=== PATIENT | female | born 1985 | race Caucasian/White ===

== ENCOUNTER 2017-01-21 15:27 | Inpatient (IN) | payer OTHER ==
[~2017-01-21] VITALS: Ht 167.6 cm; Wt 88.0 kg
[~2017-01-21 15:27] MED LIST: Bupivacaine-MPF 0.25% 30 mL Inj ONE; Ibuprofen PO; NOMED
[2017-01-21] MEDS ORDERED: fentaNYL-PF 50 mCg/mL 2 mL Inj IVPUSH PRN (16:25)
[2017-01-21] MEDS ORDERED: Hemorrhage Kit, Post Partum XX ONE (16:25)
[2017-01-21] MEDS ORDERED: diphenhydrAMINE 50 mg Capsule PO PRN (16:25)
[2017-01-21] MEDS ORDERED: Methylergonovine 0.2 mg/mL Inj IM PRN (16:25)
[2017-01-21] MEDS ORDERED: Carboprost 250 mCg/mL Inj IM PRN (16:25)
[2017-01-21] MEDS ORDERED: Sodium Chloride LOK Flush 10 mL Syringe IVFLUSH PRN ×2 (16:25)
[2017-01-21] MEDS ORDERED: Ondansetron 2 mg/mL 2 mL Inj IVPUSH PRN ×2 (16:25→23:10)
[2017-01-21] MEDS ORDERED: Oxytocin 10 Unit/mL Inj IM PRN (16:25)
[2017-01-21] MEDS ORDERED: Oxytocin 30 Units/500 mL LR 30 UNITS in IV Premix 1 EACH IV PRN (16:25)
[2017-01-21] MEDS ORDERED: PNV1TABL81 PO (17:10)
--- NOTE | 2017-01-21 17:11 | HP ---
[address] [address] HISTORY AND PHYSICAL PATIENT: JOCELYN REYES : 1985 MR#: [id number] ADMIT: 01/21/2017 JOB ID: [id number] CHIEF COMPLAINT: Rupture of membranes at term. HISTORY OF PRESENT ILLNESS: A 31-year-old, 3, para 2 with an EDC of February 03, 2017 presents at 38-1/7 weeks gestation with spontaneous rupture of membranes sometime in the late morning today. She has noticed increased fluid as she has moved around through the late morning and early afternoon. The fluid has been clear. Per nursing an AmniSure test was positive in the Center. She was found to be 2 cm, 70% effaced, not lynne very regularly. She has a history of requiring inductions and a history of rxoes-kol-eawoxzjioqq-age infants. ISSUES: 1. History of LGA infant. 2. History of issues with her 1st son. 3. History of fast labors, once she receives an epidural. ALLERGIES: None known. CURRENT MEDICATIONS: vitamin 1 tablet daily. SOCIAL HISTORY: She is , mother of two. Nonsmoker. Has previously denied recreational drug use. PAST SURGICAL HISTORY: Laparoscopic cholecystectomy in 2011. PAST MEDICAL HISTORY: Varicella as a child. History of panic attacks, improved. PAST GYNECOLOGIC HISTORY: 3, para 2. In 2011 she was induced for post-term at 42 weeks, delivered a 10 pound 4 ounce male, sustained a third-degree laceration. In 2013 she delivered at 39-4/7 weeks, was induced because of her prior large , had an uncomplicated delivery of a 9 pound 9 ounce viable male. The third is her current. LABORATORY: Blood type O positive. Rubella immune. Serology nonreactive. Hepatitis B surface antigen and HIV test negative. Urine culture was negative at the onset of . She is antibody screen negative. Hematocrit at 28 weeks was 37.2. Her glucose tolerance test at that time showed a fasting of 79, a 1 hour of 109, a 2 hour of 110. An A1c at the onset of was 5.5 and a free T4 was 1.35. Her Pap was normal in July 2016 as were gonorrhea and chlamydial cultures, both negative. She declined risk screening. She is GBS negative screened January 02, 2017. HEALTHCARE MAINTENANCE: The patient had a Tdap and flu vaccine during this . REVIEW OF SYSTEMS: She feels movement. She has had occasional contractions. PHYSICAL EXAMINATION: Temperature 36.8 Celsius, weight 194 pounds. She is an alert, laughing, gravid woman with occasional contractions, not in significant distress. Initial blood pressure 146/79, pulse 97, respirations 16. Vaginal exam is not repeated as it was just performed by the triage nurse finding her at -3 station, 70% effaced, 2 cm dilated. heart tracing shows a category 1/reactive tracing with numerous accelerations and a baseline in the 130s to 140s. Tocometer does not flower buncher or picker any particularly regular contraction pattern. ASSESSMENT: 1. Rupture of membranes at 38-1/7 weeks gestation. 2. GBS negative. 3. History of LGA , delivered successfully. PLAN: Reviewed options. Discussed literature and general medical recommendations towards progressing towards delivery once she is ruptured. Discussed oxytocin augmentation given that she has already ruptured. She is quite amenable to this. She does want an epidural. I have a call out to Dr. Bauman, production consultant for [employer] for backup. Otherwise anticipate routine care.
[2017-01-21 17:37] LABS: Mean Corpuscular Hemoglobin 27.7 pg (27.0-35.0); Mean Corpuscular Volume 87.4 fL (81-100)
[2017-01-21] MEDS: Lactated Ringer's 1,000 ML IV PRN ×2 (18:01→23:08)
[2017-01-21] MEDS ORDERED: fentaNYL 2 mCg/mL-Bupivicaine 0.125% 100 mL Premix EPIDURAL ONE (23:02)
[2017-01-21] MEDS ORDERED: Lactated Ringer's 1,000 ML IV SCH (23:09)
[2017-01-21] MEDS ORDERED: Lactated Ringer's 500 ML IV ONE (23:09)
--- NOTE | 2017-01-21 23:09 | PCM.HPANE ---
Patient Data Surgeon Admitting Provider:Ramón Little MD Attending Provider:Ramón Little MD Primary Care Physician:Ramón Little MD Other Provider: Reason for Visit Active Labor ACTIVE LABOR Ht/WT & BMI Body Mass Index Allergies Coded Allergies: No Known Allergies (Unverified Allergy, Unknown, 01/21/17) Past Anesthesia History Anesthesia History: Denies:: Abnormal Airway, Anesthesia Reactions, Difficult Intubation, Fam Anesthesia Reaction, Fam Malignant Hypertherm, Malignant Hyperthermia Diabetes History Hx Diabetes?: No MRSA MRSA: No Medications Reported Medications Pnv No.122/Iron/Folic Acid ( Multi Tablet)27 Mg Iron-800 Mcg Tablet1 Each PO DAILY 01/21/17 No Historical Medication Ea 10/30/12 Discontinued Scripts [Ibuprofen] (Motrin)800 MG TABLET No Conflict [id number] Mg PO Q6 PRN For Pain # 14 TABLET Prov:Linda Meyers MD 04/13/14 History History of ENT Problems?: No HEENT History: Denies:: Abnormal Airway Difficult Intubation Dysphagia Hearing Problem Hx of Heart Problems?: No Cardiovascular History: Denies:: Atrial Fibrillation Chest Pain Congestive Heart Failure Hypertension Pacemaker Valvular Heart Disease Hx of Respiratory Problem?: No Respiratory History: Denies:: Asthma COPD Cough Hemoptysis Pneumonia Tuberculosis Hx Neurologic Problems?: No Neurological History: Denies:: CVA Hx of GI Problems?: No Gastrointestinal History: Denies:: Cirrhosis Diverticulitis Gastroesphageal Reflux Hiatal Hernia Rectal Bleeding Hx of Problems?: No Female Hx: Positive for:: Currently Denies:: Endometriosis Pelvic Inflammatory Problems with Breasts? Hx Musculoskeletal Problems?: No Musculoskeletal History: Denies:: Joint Replacement Hx of Psycho/Social Problems?: Yes Psycho Social History: Positive for:: Anxiety (hx of panic attacks) Denies:: Hx Depression Hx Surgeries?: Yes (lap sanjay) Hx Any Other Health Problems?: No Other History: Positive for:: Cancer Denies:: Endocrine Disease Thyroid Disease History Blood Transfusions: Denies:: Blood Transfusions Hx Diabetes: No Hx Alcohol Use: Yes (SOCIAL)Hx Substance Use: No Smoking Status: Never Smoker Stop/Bang Risk Assessment Category Category 1A: Patient has history of documented sleep apnea, and HAS NOT received any narcotic, sedative or anesthesia administration during this stay. Category 1B: Patient has history of documented sleep apnea, and HAS received any narcotic , sedative or anesthesia administration during this stay Category 2: Patient has SUSPECTED Obstructive Sleep Apnea, and HAS received any narcotic , sedative or anesthesia administration during this stay. Category 3: Patient has SUSPECTED Obstructive Sleep Apnea and HAS NOT received narcotic, sedative or anesthesia administration during this stay. Category 4: Outpatient in Procedural Areas with known sleep apnea or who screen positive for High Risk via the STOP/BANG questionnaire. Exam Exam General Appearance: Alert, Oriented X3, Cooperative, No Acute Distress HEENT/AIRWAY: MP 2 Lungs: Clear to Auscultation, Normal Air Movement Heart: Exam Unremarkable, Regular Rate/Rhythm, No Murmurs/Rubs/Gallops Meds/Labs/Diagnostics Labs Test 01/21/17 17:15 White Blood Count 7.7th/mm3 (3.8-10.1) Red Blood Count 4.05mil/mm3 (3.90-5.20) Hemoglobin 11.2g/dL (12.0-15.6) Hematocrit 35.4% (35.0-46.0) Mean Corpuscular Volume 87.4fL (81-100) Mean Corpuscular Hemoglobin 27.7pg (27.0-35.0) Mean Corpuscular Hemoglobin Concent 31.6% (32.0-37.0) Red Cell Distribution Width 14.0% (12.3-15.4) Platelet Count 190bil/L (150-400) Plan Impression Patient chart reviewed, patient interviewed and anesthestic plan with risks, benefits, and alternatives discussed, and informed consent obtained. Anesthetic Plan: Epidural Bene/Risks/Altern/Consents: Yes HP Complete Prior to Induction: Yes Trinidad Tobar MD Jan 21, 2017 23:09
[2017-01-21] MEDS ORDERED: fentaNYL 2 mCg/mL-Bupiv 0.125% 100 ML EPIDURAL SCH (23:10)
[2017-01-21] MEDS ORDERED: EPHEDrine Sulfate 50 mg/mL Inj IVPUSH PRN (23:10)
[2017-01-21] MEDS ORDERED: Atropine 1 mg/10 mL (Code) Syringe IVPUSH PRN (23:10)
[2017-01-22] MEDS ORDERED: Lactated Ringer's 1,000 ML IV SCH (01:22)
--- NOTE | 2017-01-22 01:23 | PCM.ANEP1 ---
Post Anesthesia Phase 1 PACU Phase 1 Assessment Anesthetic Administered: Epidural Level of Alertness: Awake, talking Pain: No Pain Scale Score: 8 Nausea or Vomiting: No Lungs: Clear to Auscultation, Normal Air Movement Trinidad Tobar MD Jan 22, 2017 01:23
--- NOTE | 2017-01-22 01:24 | PCM.ANEP2 ---
Post Anesthesia Evaluation ASA/CMS Post Anesthesia VS in Patient's Normal Range?: Yes Resp Stable; Airway Patent?: Yes CV Function & Hydration Stable: Yes Mental Status Recovered?: Yes Pain control Satisfactory?: Yes N/V Control Satisfactory?: Yes Trinidad Tobar MD Jan 22, 2017 01:24
[2017-01-22] MEDS ORDERED: LANOlin HPA 7 Gm Ointment TOPICAL PRN (01:25)
[2017-01-22] MEDS ORDERED: Benzocaine (Dermoplast) 20% 60 Gm Spray TOPICAL PRN (01:25)
[2017-01-22] MEDS ORDERED: Carboprost 250 mCg/mL Inj IM PRN (01:25)
[2017-01-22] MEDS ORDERED: Oxytocin 10 Unit/mL Inj IM PRN (01:25)
[2017-01-22] MEDS ORDERED: Methylergonovine 0.2 mg/mL Inj IM PRN (01:25)
[2017-01-22] MEDS ORDERED: Witch Hazel-Glycerin Pads TOPICAL PRN (01:25)
[2017-01-22] MEDS ORDERED: Hemorrhage Kit, Post Partum XX ONE (01:25)
[2017-01-22] MEDS ORDERED: HYDROcodone-APAP 5-325 mg Tablet PO PRN (01:25)
[2017-01-22] MEDS ORDERED: Oxytocin 30 Units/500 mL LR 30 UNITS in IV Premix 1 EACH IV PRN (01:25)
--- NOTE | 2017-01-22 02:21 | OP ---
[address] [address] OPERATIVE REPORT PATIENT: JOCELYN REYES : 1985 MR#: [id number] ADMIT: 01/21/2017 JOB ID: [id number] DELIVERY NOTE: Date of delivery: 01/22/2017 Delivery position: ZAMZAM. Apgars: 8 and 9. Delivery weight: 3576 grams (7 pounds, 14 ounces). Umbilical cord: Three-vessel cord with normal length and appearance. Placenta: Central cord insertion, normal appearance, no evidence of retained fragments. EBL: 250 cc. Anesthesia: Epidural and 1% lidocaine for repair. Complications: None. The patient was found to be complete with head at +2 station. Nursing contacted me to come in promptly. With only a few pushes patient brought the head down in ZAMZAM position. Head delivered. No nuchal cord was identified. Body and shoulders delivered without difficulty. The was immediately vigorous and passed up to nursing and patient for additional stimulation. Cord was clamped after two minute delay and cord blood collected and sent. Placenta delivered spontaneously with gentle traction on the cord after a few additional minutes. Fundus is firm and bleeding slowed quite promptly with fundal massage and IV oxytocin. Perineum was inspected and showed a fairly shallow second-degree perineal laceration repaired with 2-0 Vicryl in standard fashion. After repair, rectal exam was performed showing intact sphincter tone and no snzwsag-dki-zbgzrjk tears. Sponge and needle counts were correct after delivery. Patient is in stable condition . She plans to breast-feed. LIVE
[2017-01-22] MEDS: Ascorbic Acid 500 mg Tablet PO SCH ×2 (07:47→20:42)
[2017-01-23 07:01] LABS: Mean Corpuscular Volume 88.2 fL (81-100)
--- NOTE | 2017-01-23 07:51 | PCM.DIOB ---
Obstetrical Disch Instruction Date of Service: Jan 23, 2017 Dates of Hospitalization Date of Hospital Admission Jan 21, 2017 at 15:55 Providers Admitting Physician: Ramón Little MD Primary Care Physician: Ramón Little MD Attending Physician: Ramón Little MD Discharge Diagnosis Discharge Diagnosis 1. at 38 weeks +2 days with spontaneous rupture of membranes 2. Epidural analgesia 3. Spontaneous vaginal delivery of a live born female infant Post Operative diagnosis 1. at 38 weeks +2 days with spontaneous rupture of membranes 2. Epidural analgesia 3. Spontaneous vaginal delivery of a liveborn female Problems: (1) Full-term PROM with onset of labor within 24 hours of rupture Status: Resolved ICD Code: O42.02 (2) with 38 completed weeks gestation Status: Resolved ICD Code: Z3A.38 (3) (normal spontaneous vaginal delivery) Status: Acute ICD Code: O80 Diet Discharge Diet: No restrictions Activity Discharge Activity-General: No restrictions, Pelvic Rest for 6 weeks, Try not to overdue, Be up and about, Balance rest and activity, Activity as pain allows , Activity as energy allows Dressing and Incisional Care Hygiene: May shower, Perineal care, Sitz bath, Dermoplast spray, Witch Catina pads, Ice Additional Instructions Discharge Instructions Please see Dr. Little in his office for routine follow-up. Follow Up Plan Follow-up Provider (F9): Ramón Little MD Follow-up appointment: Weeks (6) Call your provider for: Fever or Chills, Shortness of breath, Heavy vaginal bleeding, Epigastric pain, Excessive constipation, Vaginal discomfort, Red painful breasts Carmen Hewitt MD Jan 23, 2017 07:51
[2017-01-23] MEDS ORDERED: DOCU-41 PO (07:53)
[2017-01-23] MEDS ORDERED: PNV1TABL81 PO (07:53)
[2017-01-23] MEDS ORDERED: FERR-74 PO (07:53)
[2017-01-23] MEDS ORDERED: Ascorbic Acid PO (07:53)
[2017-01-23] MEDS ORDERED: IBUP-1827 PO (07:53)
[2017-01-23] MEDS: Ascorbic Acid 500 mg Tablet PO SCH (09:26)
[2017-01-23 09:45] VITALS: BP 128/70; PULSE 85; RESP 18
--- NOTE | 2017-01-23 13:01 | DIS ---
[address] [address] DISCHARGE SUMMARY PATIENT: JOCELYN REYES : 1985 MR#: [id number] ADMIT: 01/21/2017 JOB ID: [id number] DIS: 01/23/2017 ADMITTING DIAGNOSES: 1. at 38 weeks plus 2 days, with spontaneous rupture of membranes. 2. Epidural analgesia. 3. Spontaneous vaginal delivery of a liveborn baby girl by Dr. Little. DISCHARGE DIAGNOSES: 1. at 38 weeks +2 days with spontaneous rupture of membranes 2. Epidural analgesia 3. Spontaneous vaginal delivery of a liveborn baby girl, delivered by Dr. Little. HISTORY OF PRESENT ILLNESS: The patient is a very pleasant 31-year-old G3, now P3, who has had regular care managed by Dr. Little both during her and with delivery. He is out of town today at a conference and has asked me to come in and see them for discharge. Please see details of his admission history and physical and operative note for the delivery details. HOSPITAL COURSE: Essentially mom came in at 38 weeks plus 2 days and had good progress to labor and went on to normal vaginal delivery of a liveborn female . Apgars were eight at one minute and nine at five minutes. Baby's weight was 3576 g. She did have a second-degree tear that was repaired in the usual manner to achieve good cosmesis and hemostasis, and the placenta delivered intact with a three-vessel cord. Estimated blood loss at time of delivery was less than 250 mL. In the , mom is doing well. There have been some issues with latch and baby has a very strong suckle. She has been ambulating and managing her pain just with ibuprofen. She and her are both bonding well with the baby. She successfully breast fed baby number two for a year, but had a lot of difficulties with baby number one. has been involved. The baby's bilirubin transcutaneously was elevated this morning and lab results are pending at time of this dictation. However, I do anticipate discharge for both of them later today. DISCHARGE PHYSICAL EXAMINATION: Pleasant female, no acute distress. Blood pressure is 124/72, pulse is 73 and regular, temp 36.8. Chest is clear throughout, with normal respiratory effort. Heart sounds normal sinus rhythm, with no murmurs. Breasts are quite large. Nipples are flat but do saul. Fundus is firm at the umbilicus. Her perineum is not swollen. She has normal moderate rubra lochia. No ankle edema is noted. She had some appropriate tenderness around the lower back at her epidural injection site. LABORATORY DATA: Admitting white count 7.7 with hemoglobin of 11.2, hematocrit of 35.4, platelet count of 198. Discharge hemoglobin is 8.7, hematocrit of 28.4, and platelet count of 135. DISCHARGE MEDICATIONS: Include: 1. ibuprofen 800 mg p.o. t.i.d. p.r.n. 2. vitamins 1 tablet p.o. daily while . 3. Ferrous sulfate 325 mg p.o. daily for 3 months. 4. Colace 100 mg p.o. b.i.d. p.r.n. for constipation. IMPRESSION: This is a 31-year-old G3 now P3 who has had regular care and came in with rupture of membranes at 38 weeks plus 2 days and went on to normal vaginal delivery of a liveborn female . Mom and baby doing well and both are discharged home today in good condition for followup with Dr. Little in his office. LIVE
== END 2017-01-23 10:34 | disposition home or self-care (01) | DRG 775 ==
LOC: FBCO 15:27 → FBC 15:55
PROVIDERS: ADMIT Family Medicine; ATTEND Family Medicine
PROC: 10E0XZZ Delivery of Products of Conception, External Approach (ICD-10-PCS; principal; 2017-01-22)
PROC: 0KQM0ZZ Repair Perineum Muscle, Open Approach (ICD-10-PCS; 2017-01-22)
DX: O70.1 Second degree perineal laceration during delivery (principal); Z37.0 Single live birth; Z3A.38 38 weeks gestation of pregnancy